=== PATIENT | female | born 1965 | race Two or more races ===

== ENCOUNTER 2024-08-07 08:36 | Day surgery (SDC) | payer OTHER ==
[~2024-08-07] VITALS: Ht 157.5 cm; Wt 73.9 kg
[~2024-08-07 08:36] MED LIST: ATOR10TA52 PO; LOSA-533 PO; METF-372 PO
[2024-08-07] MEDS ORDERED: LIDOCAINE 2%HCL (LOCAL ANESTH.) INJ 10ml MDV ONE (10:36)
[2024-08-07] MEDS ORDERED: PROPOFOL 10 MG/ML 20 ML IV ONE ×2 (10:51→11:05)
--- NOTE | 2024-08-07 10:51 | DVHHP2 ---
GI H&P Pre-Op Assessment Date: 08/07/24 Chief complaint: Cirrhosis, history of esophageal varices HPI: per clinic note Past medical history: per clinic note Past surgical history: per clinic note Family history: per clinic note Physical exam: General: NAD, AAOX3 HEENT: PERRL, no scleral icterus, normal hearing, gums without lesions or bleeding, oropharynx clear without erythema or exudate. Neck: Supple without enlargement of the thyroid, or lymphadenopathy. Chest: Normal size and shape, no tenderness, lung vera clear to auscultation and percussion, nonlabored breathing. Heart: RRR, no murmur Abdomen: non-distended, no tenderness to palpation, +BS, no hepatosplenomegaly Extremities: no edema Neurological: CN II-XII intact, sensation intact in all extremities, 5+ strength in all extremities Skin: No rashes, No jaundice Assessment: - Cirrhosis, history of esophageal varices Plan: - EGD - Risks (bleeding, infection, perforation, reaction to sedation medications and cardiopulmonary arrest) and benefit of the procedure were explained to patient. Patient agrees to undergo the procedure. MATHEW LUIS MD Aug 07, 2024 10:51
[2024-08-07 11:07] VITALS: PULSE 81; RESP 10; TEMP 98.5; O2SAT 100
--- NOTE | 2024-08-07 11:09 | DVHOP2 ---
Operative Report DATE OF OPERATION: 08/07/24 PROCEDURE: Upper Endoscopy. PREOPERATIVE INDICATION: The patient is a 59 -year-old female with cirrhosis and history of esophageal varices undergoing endoscopy for esophageal varices surveillance. POSTOPERATIVE DIAGNOSES: 1. Portal hypertensive gastropathy 2. One column of esophageal varix was banded in the distal esophagus. PROCEDURE PERFORMED BY: Kennedy Mckenna SCOPE: Olympus videoendoscope. ASA CLASS: 3 PREOPERATIVE MEDICATIONS: MENG with Ralf LEGER PROCEDURE IN DETAIL: After obtaining an informed consent, the patient was placed on left lateral decubitus position. The patient was then sedated with the above medications. A bite block was placed between her teeth. The endoscope was then passed through the oropharynx, into the esophagus, and through the stomach and pylorus up to the second and third part of the duodenum. The duodenum was normal appearance. There was portal hypertensive gastropathy in the stomach. The GE junction was normal in appearance at 35 cm. One column of esophageal varix was banded in the distal esophagus. The endoscope was then withdrawn. The patient tolerated the procedure well without difficulty. COMPLICATIONS : None SPECIMENS: None DISPOSITION: D/C to home PLAN: 1. Patient will need repeat EGD in 4-8 weeks to reassess the esophageal varices. KENNEDY MCKENNA MD Aug 07, 2024 11:09
--- NOTE | 2024-08-07 11:10 | DVHDS2 ---
Physician Discharge Progress N Final Diagnosis: Portal hypertensive gastropathy, esophageal varices Operations or Procedures: Operations or Procedures EGD with esophageal variceal banding Condition on Discharge: Good Disposition: Home Discharge Instructions: Diet: See Comment Diet comment: Patient can only be on liquid diet for next 24 hours. Activity: No Restrictions, As Tolerated Medications: Resume previous home medications Follow Up Care: Discharge Statement: "Patient was advised to return to the ER or call 911 if any headaches, dizziness, shortness of breath, chest pain, abdominal pain, bleeding, fevers, or worsening of medical condition. Patient was counseled about treatment plan, medications, possible side effects, patientverbalized understanding. All questions were answered to the best of my ability. This discharge took greater then 30 minutes in planning, reviewing documentation, counseling the patient, and discussing with other team members." MATHEW LUIS MD Aug 07, 2024 11:10
[2024-08-07 11:35] VITALS: BP 114/69; PULSE 77; RESP 15; O2SAT 96
== END 2024-08-07 11:55 | disposition home or self-care (01) ==
LOC: GI 08:36
PROVIDERS: ATTEND Internal Medicine Gastroenterology
DX: K74.60 Unspecified cirrhosis of liver (principal); I85.10 Secondary esophageal varices without bleeding; K76.6 Portal hypertension; K31.89 Other diseases of stomach and duodenum; I10 Essential (primary) hypertension; E11.9 Type 2 diabetes mellitus without complications; E78.5 Hyperlipidemia, unspecified; Z90.49 Acquired absence of other specified parts of digestive tract; Z90.710 Acquired absence of both cervix and uterus; Z79.84 Long term (current) use of oral hypoglycemic drugs; Z79.899 Other long term (current) drug therapy
CPT/HCPCS: 43244; 82962; J2003; J2704; 99152

== ENCOUNTER 2025-01-01 07:53 | Day surgery (SDC) | payer OTHER ==
[~2025-01-01] VITALS: Ht 157.5 cm; Wt 73.0 kg
[~2025-01-01 07:53] MED LIST changes: +ATOR10TA PO; -ATOR10TA52 PO; +CARV3.1240 PO; +DAPA1TAB4 PO; -LOSA-533 PO; +LOSA-535 PO; +PANT40TA2 PO
[2025-01-01] MEDS ORDERED: LIDOCAINE VISCOUS 2% 15ML UD ONE (08:26)
[2025-01-01] MEDS ORDERED: fentaNYL CITRATE 100 MCG/2 ML VL ONE (08:57)
[2025-01-01] MEDS ORDERED: PROPOFOL 10 MG/ML 20 ML IV ONE (08:59)
[2025-01-01 09:28] VITALS: PULSE 82; RESP 12; TEMP 98; O2SAT 95
[2025-01-01] MEDS: ONDANSETRON HCL 4 MG/2 ML VIAL IV ONE (09:48)
[2025-01-01] MEDS ORDERED: ONDANSETRON HCL 4 MG/2 ML VIAL ONE (09:51)
[2025-01-01] MEDS: METOCLOPRAMIDE HCL 5MG/ml INJ 2ml VIAL IV ONE (10:05)
[2025-01-01] MEDS ORDERED: METOCLOPRAMIDE HCL 5MG/ml INJ 2ml VIAL ONE (10:07)
[2025-01-01 10:28] VITALS: PULSE 65; RESP 12; O2SAT 96
[2025-01-01] MEDS: PROCHLORPERAZINE EDISYLATE 5 MG/ML 2ML VIAL IV ONE (10:28)
[2025-01-01 10:43] VITALS: BP 131/61; PULSE 71; RESP 13; O2SAT 95
--- NOTE | 2025-01-02 11:04 | DVHOP2 ---
Operative Report DATE OF OPERATION: 01/01/25 PROCEDURE: Upper Endoscopy. PREOPERATIVE INDICATION: The patient is a 59 -year-old female with cirrhosis undergoing endoscopy for esophageal variceal surveillance. POSTOPERATIVE DIAGNOSES: 1. Moderate gastritis 2. Portal hypertensive gastropathy 3. Two esophageal varices were banded. PROCEDURE PERFORMED BY: Kennedy Mckenna SCOPE: Olympus videoendoscope. ASA CLASS: 3 PREOPERATIVE MEDICATIONS: MAC with Dr Bustamante PROCEDURE IN DETAIL: After obtaining an informed consent, the patient was placed on her back. The patient was then sedated with the above medications. A bite block was placed between her teeth. The endoscope was then passed through the oropharynx, into the esophagus, and through the stomach and pylorus up to the second and third part of the duodenum. The duodenum was normal in appea natalie. There was moderate gastritis. There was portal hypertensive gastropathy. The GE junction was at 34 cm. Two esophageal varices in the distal esophagus were banded. The endoscope was then withdrawn. The patient tolerated the procedure well without difficulty. COMPLICATIONS : None SPECIMENS: None DISPOSITION: D/C to home PLAN: 1. Liquid diet for 24 hours. 2. Patient will need repeat EGD in a few weeks to reassess the esophageal varices. KENNEDY MCKENNA MD Jan 01, 2025 09:29
--- NOTE | 2025-01-02 11:04 | DVHHP2 ---
GI H&P Pre-Op Assessment Date: 01/01/25 Chief complaint: Cirrhosis, esophageal varices HPI: per clinic note Past medical history: per clinic note Past surgical history: per clinic note Family history: per clinic note Physical exam: General: NAD, AAOX3 HEENT: PERRL, no scleral icterus, normal hearing, gums without lesions or bleeding, oropharynx clear without erythema or exudate. Neck: Supple without enlargement of the thyroid, or lymphadenopathy. Chest: Normal size and shape, no tenderness, lung vera clear to auscultation and percussion, nonlabored breathing. Heart: RRR, no murmur Abdomen: non-distended, no tenderness to palpation, +BS, no hepatosplenomegaly Extremities: no edema Neurological: CN II-XII intact, sensation intact in all extremities, 5+ strength in all extremities Skin: No rashes, No jaundice Assessment: - Cirrhosis, esophageal varices Plan: - EGD - Risks (bleeding, infection, perforation, reaction to sedation medications and cardiopulmonary arrest) and benefit of the procedure were explained to patient. Patient agrees to undergo the procedure. MATHEW LUIS MD Jan 01, 2025 09:27
--- NOTE | 2025-01-02 11:04 | DVHDS2 ---
Physician Discharge Progress N Final Diagnosis: Moderate gastritis, portal hypertensive gastropathy, esophageal varices. Operations or Procedures: Operations or Procedures EGD with esophageal variceal banding Condition on Discharge: Good Disposition: Home Discharge Instructions: Diet: See Comment Diet comment: Liquid diet for next 24 hours. Activity: Light activity Medications: Resume previous home medications Follow Up Care: Discharge Statement: "Patient was advised to return to the ER or call 911 if any headaches, dizziness, shortness of breath, chest pain, abdominal pain, bleeding, fevers, or worsening of medical condition. Patient was counseled about treatment plan, medications, possible side effects, patientverbalized understanding. All questions were answered to the best of my ability. This discharge took greater then 30 minutes in planning, reviewing documentation , counseling the patient, and discussing with other team members." MATHEW LUIS MD Jan 01, 2025 09:30
== END 2025-01-01 12:00 | disposition home or self-care (01) ==
LOC: GI 07:53
PROVIDERS: ATTEND Internal Medicine Gastroenterology
DX: K74.60 Unspecified cirrhosis of liver (principal); I85.10 Secondary esophageal varices without bleeding; K76.6 Portal hypertension; I10 Essential (primary) hypertension; E11.9 Type 2 diabetes mellitus without complications; E78.5 Hyperlipidemia, unspecified; Z79.84 Long term (current) use of oral hypoglycemic drugs; Z79.899 Other long term (current) drug therapy; Z87.440 Personal history of urinary (tract) infections; Z90.49 Acquired absence of other specified parts of digestive tract; Z90.710 Acquired absence of both cervix and uterus
CPT/HCPCS: 43244; 82962; J0780; J2405; J2704; J2765; J3010